=== PATIENT | female | born 1980 | race Caucasian/White ===

== ENCOUNTER 2017-08-13 21:25 | Emergency (ER) | payer BC, OTHER ==
[2017-08-13 21:41] VITALS: BP 142/95
[2017-08-13] MEDS ORDERED: Amoxicillin PO (*) 500 MG CAP PO ONE (22:12)
--- NOTE | 2017-08-13 22:23 | UC ---
Ear Complaint HPI - HPI Summary HPI Summary: 4 DAYS OF URI SX - COUGH, CONGESTION ,ST. WAS ON A PLANE TODAY AND AFTER LANDING HER EARS WOULD NOT POP, HER HEARING WAS MUTED AND SHE IS HAVING TWINGES OF PAIN IN BOTH EARS. NO FEVERS. - History of Current Complaint Chief Complaint: UCRespiratory Stated Complaint: HEARING IMPAIRMENT Time Seen by Provider: 08/13/17 21:59 Hx Obtained From: Patient Hx Last Menstrual Period: one week ago Onset/Duration: Sudden Onset, Lasting Hours Severity Initially: Moderate Severity Currently: Moderate Pain Intensity: 5 Pain Scale Used: 0-10 Numeric Aggravating Factors: Nothing Alleviating Factors: Nothing Associated Signs/Symptoms: Positive: Hearing Loss, URI Symptoms. Negative: Discharge, Foreign Body Sensation, Trauma to Ear - Allergies/Home Medications Allergies/Adverse Reactions: Allergies Allergy/AdvReac Type Severity Reaction Status Date / Time No Known Allergies Allergy Verified 08/13/17 21:41 PMH/Surg Hx/FS Hx/Imm Hx Endocrine History: Diabetes - Surgical History Surgical History: None - Family History Known Family History: Positive: Hypertension, Diabetes - Social History Alcohol Use: Occasionally Substance Use Type: None Smoking Status (MU): Former Smoker Review of Systems Constitutional: Negative ENT: Sore Throat, Ear Ache, Nasal Discharge Respiratory: Cough Cardiovascular: Negative Gastrointestinal: Negative All Other Systems Reviewed And Are Negative: Yes Physical Exam Triage Information Reviewed: Yes Appearance: Well-Appearing, No Pain Distress, Well-Nourished Vital Signs: Initial Vital Signs Temp 97.5 F 08/13/17 21:37 Pulse 90 08/13/17 21:37 Resp 12 08/13/17 21:37 BP 142/95 08/13/17 21:37 Pulse Ox 99 08/13/17 21:37 Vital Signs Reviewed: Yes Eyes: Positive: Conjunctiva Clear ENT: Positive: Hearing grossly normal, Pharynx normal, Other: - BILATERAL TMs DULL, ERYTHEMATOUS AND BULGING Neck: Positive: Supple, Nontender, No Lymphadenopathy Respiratory Exam: Normal Cardiovascular Exam: Normal Abdomen Description: Positive: Soft Musculoskeletal: Positive: No Edema Neurological: Positive: Alert Psychological: Positive: Age Appropriate Behavior Skin: Negative: rashes Ear Complaint Course/Dx - Differential Dx/Diagnosis Provider Diagnoses: BILATERAL AOM Discharge - Discharge Plan Condition: Stable Disposition: HOME Prescriptions: Amoxicillin PO (*) [Amoxicillin 500 MG CAP*] 1,000 mg PO Q12H #26 cap Patient Education Materials: Otitis Media (ED) Referrals: Sheyla Bae MD [Primary Care Provider] - If Needed Additional Instructions: YOUR BLOOD PRESSURE WAS ELEVATED TODAY. THIS MAY BE DUE TO YOUR ACUTE CONDITION. MONITOR AND FOLLOW-UP WITH YOUR PCP WITHIN 4 WEEKS IF IT HAS NOT RETURNED TO NORMAL.
== END 2017-08-13 22:25 | disposition home or self-care (01) ==
LOC: UCEAST 21:25
DX: H66.93 Otitis media, unspecified, bilateral (principal); R05 Cough; J02.9 Acute pharyngitis, unspecified; E11.9 Type 2 diabetes mellitus without complications; Z87.891 Personal history of nicotine dependence
CPT/HCPCS: 99212; A9270-GY; G0463

== ENCOUNTER 2018-01-08 16:11 | Emergency (ER) | payer BC, OTHER ==
--- NOTE | 2018-01-08 17:05 | UC ---
Throat Pain/Nasal Neil HPI - HPI Summary HPI Summary: Pt presents with left ear pain for 3 days. Dry cough and post nasal drip started yesterday. She has been taking dayquill/nyquill with mild relief. Denies fever, chills, SOB, chest pain, abdominal pain, n/v/d/c. - History of Current Complaint Chief Complaint: UCEar Stated Complaint: EAR PAIN,COUGH,CONGESTION Time Seen by Provider: 01/08/18 17:05 Hx Obtained From: Patient Hx Last Menstrual Period: now Onset/Duration: Gradual Onset Severity: Moderate Pain Intensity: 8 Pain Scale Used: 0-10 Numeric Cough: Nonproductive - Allergies/Home Medications Allergies/Adverse Reactions: Allergies Allergy/AdvReac Type Severity Reaction Status Date / Time No Known Allergies Allergy Verified 01/08/18 16:28 PMH/Surg Hx/FS Hx/Imm Hx Endocrine History: Diabetes - Surgical History Surgical History: None - Family History Known Family History: Positive: Hypertension, Diabetes - Social History Occupation: Employed Full-time Lives: With Family Alcohol Use: Occasionally Substance Use Type: None Smoking Status (MU): Former Smoker Review of Systems Constitutional: Negative Skin: Negative Eyes: Negative ENT: Ear Ache, Sinus Congestion Respiratory: Cough Cardiovascular: Negative Gastrointestinal: Negative Musculoskeletal: Negative Neurological: Negative Psychological: Negative All Other Systems Reviewed And Are Negative: Yes Physical Exam Triage Information Reviewed: Yes Appearance: Well-Appearing, No Pain Distress, Well-Nourished Vital Signs: Initial Vital Signs Temp 96.9 F 01/08/18 16:25 Pulse 85 01/08/18 16:25 Resp 18 01/08/18 16:25 BP 126/93 01/08/18 16:25 Pulse Ox 99 01/08/18 16:25 Vital Signs Reviewed: Yes Eyes: Positive: Conjunctiva Clear. Negative: Conjunctiva Inflamed, Discharge ENT: Positive: Hearing grossly normal, Pharynx normal, Nasal congestion, TM bulging - Left ear, TM red - Left ear, Uvula midline. Negative: Pharyngeal erythema, Nasal drainage, Tonsillar swelling, Tonsillar exudate, Hoarse voice, Sinus tenderness Neck: Positive: Supple, Nontender, No Lymphadenopathy Respiratory: Positive: Chest non-tender, Lungs clear, Normal breath sounds, No respiratory distress, No accessory muscle use Cardiovascular: Positive: RRR, No Murmur, Pulses Normal Neurological: Positive: Alert Psychological: Positive: Age Appropriate Behavior Skin: Negative: rashes Throat Pain/Nasal Course/Dx - Course Course Of Treatment: Left ear otitis media - Differential Dx/Diagnosis Provider Diagnoses: Left ear otitis media Discharge - Discharge Plan Condition: Stable Disposition: HOME Prescriptions: Amoxicillin PO (*) [Amoxicillin 500 MG CAP*] 500 mg PO Q12H #20 cap Patient Education Materials: Ear Infection (ED) Referrals: Sheyla Bae MD [Primary Care Provider] - Additional Instructions: If you develop a fever, shortness of breath, chest pain, new or worsening symptoms - please call your PCP or go to the ED.
[2018-01-08 17:19] VITALS: BP 128/88
== END 2018-01-08 17:19 | disposition home or self-care (01) ==
LOC: UCEAST 16:11
DX: H66.92 Otitis media, unspecified, left ear (principal); E11.9 Type 2 diabetes mellitus without complications; Z87.891 Personal history of nicotine dependence
CPT/HCPCS: 99212; G0463

== ENCOUNTER 2023-12-23 08:15 | Inpatient (IN) ==
[2023-12-23] MEDS ORDERED: Lidocaine 1% VIAL 10 MG/ML 30 ML VIAL INJ PRN (09:35)
[2023-12-23] MEDS: miSOPROStol 100 mcg TAB PO ONE ×2 (10:07→14:05)
[2023-12-23 11:02] LABS: Urine Benzodiazepine Screen None Detected (None Detect); Urine Cannabinoids Screen None Detected (None Detect); Urine Opiates Screen None Detected (None Detect)
[2023-12-23] MEDS: Dinoprostone 10 MG VAG.SUPP VAGINAL ONE (18:32)
[2023-12-24] MEDS ORDERED: Sodium Phosphate ADULT ENEMA 133 ML BTL PR PRN (10:23)
[2023-12-24] MEDS ORDERED: witch hazeL 43% TOP.SOLN 200 ML PHA COMPOUND TOPICAL PRN (10:23)
[2023-12-24] MEDS: Witch Hazel PAD JAR TOPICAL SCH (10:49)
[2023-12-24] MEDS: miSOPROStol 100 mcg TAB PO ONE ×2 (10:55→16:11)
[2023-12-24 20:12] LABS: ABS Eosinophils 0.1 10^3/uL (0.0-0.5); ABS Lymphocytes 1.7 10^3/uL (1.0-4.8); ABS Monocytes 0.8 10^3/uL (0.0-0.9); ABS Neutrophils 6.2 10^3/uL (1.5-7.6); Eosinophil % 0.7 %; Hematocrit 35.2 % (35-45); Hemoglobin 12.3 g/dL (11.5-14.3); Lymphocyte % 19.8 %; Mean Corpuscular Hemoglobin 32.1 pg (27-33); Mean Corpuscular Volume 91.9 fL (80-97); Platelet Count 248 10^3/uL (150-450); Red Blood Count 3.83 10^6/uL (3.63-4.92); Red Cell Distribution Width 14.8 % (12-17); White Blood Count 8.8 10^3/uL (3.8-11.8)
[2023-12-24] MEDS: Dinoprostone 10 MG VAG.SUPP VAGINAL ONE (20:22)
[2023-12-24 21:57] LABS: HIV 4th Generation Nonreactive (Nonreactive)
[2023-12-25] MEDS: Buffered Lidocaine 1% SYRIN 1 ml INTRADERM ONE (07:05)
[2023-12-25 10:15] LABS: ABS Eosinophils 0.1 10^3/uL (0.0-0.5); ABS Lymphocytes 1.6 10^3/uL (1.0-4.8); ABS Monocytes 0.7 10^3/uL (0.0-0.9); ABS Neutrophils 6.7 10^3/uL (1.5-7.6); Eosinophil % 0.6 %; Hematocrit 36.5 % (35-45); Hemoglobin 12.9 g/dL (11.5-14.3); Lymphocyte % 18.1 %; Mean Corpuscular Hemoglobin 32.2 pg (27-33); Mean Corpuscular Hgb Conc 35.2 g/dL (31-36); Mean Corpuscular Volume 91.5 fL (80-97); Platelet Count 240 10^3/uL (150-450); Red Blood Count 3.99 10^6/uL (3.63-4.92); Red Cell Distribution Width 14.8 % (12-17); White Blood Count 9.1 10^3/uL (3.8-11.8)
[2023-12-25 10:34] LABS: Urine Creatinine Concentration 54.79 mg/dL (20.00-320.00); Urine TP Creat Ratio 0.1 mg/mg
[2023-12-25 10:36] LABS: Albumin 3.5 g/dL (3.2-5.2); Albumin/Globulin Ratio 1.2 (1-3); Calcium 8.9 mg/dL (8.6-10.3); Creatinine, Serum 0.6 mg/dL (0.51-0.95); Globulin 2.9 g/dL (2-4); Total Bilirubin 0.4 mg/dL (0.2-1.0); Total Protein 6.4 g/dL (6.4-8.9); Uric Acid 3.9 mg/dL (2.3-6.6); eGFR CKD-EPI 113.4 (>60)
[2023-12-25] MEDS: Oxytocin in LR 20,000 MILLI.UNIT/1,000 ML BAG IV SCH ×2 (10:36→22:00)
[2023-12-25] MEDS: Lactated Ringers 1000 ml BAG 1,000 ML IV SCH (10:42)
[2023-12-25] MEDS ORDERED: Morphine PF AMP (0.5MG/ML) 5 MG/10 ML AMP ONE (17:29)
[2023-12-25] MEDS ORDERED: Oxytocin 10 UNITS/ML 1 ML VIAL ONE (17:30)
[2023-12-25] MEDS ORDERED: Bupivacaine 0.5% SDV PF 30ML VIAL ONE (17:30)
[2023-12-25] MEDS ORDERED: Bupivacaine-MPF SPINAL 7.5 MG/ML - 2ML AMP ONE (17:30)
[2023-12-25] MEDS ORDERED: Ondansetron 4 mg VIAL 2 MG/ML 2 ml VIAL ONE (17:30)
[2023-12-25] MEDS: Sodium Citrate/Citric Acid LIQ 15 ML UDC ONE (17:33)
[2023-12-25] MEDS: ceFOXitin 3 GM in NS 0.9% 100 ml BAG 100 ML IVPB ONE (17:33)
[2023-12-25] MEDS ORDERED: Acetaminophen IV 1 GM/100ML 1,000 MG/100 ML BAG IV ONE (18:10)
[2023-12-25] MEDS ORDERED: fentaNYL 100 mcg/2 ml 50 MCG/ML VIAL ONE (18:28)
[2023-12-25] MEDS ORDERED: Dexamethasone IV 4 MG/ML VIAL 1 ml VIAL ONE (18:38)
[2023-12-25 19:02] LABS: Urine Appearance Cloudy; Urine Bilirubin Negative (Negative); Urine Blood Negative (Negative); Urine Color Yellow; Urine Glucose Negative (Negative); Urine Ketones 1+ (Negative); Urine Nitrite Negative (Negative); Urine Protein 1+(30 mg/dL) (Negative); Urine Specific Gravity 1.026 (1.002-1.030); Urine Urobilinogen Negative (Negative)
[2023-12-25 19:21] LABS: Urine Bacteria Absent (Absent); Urine Red Blood Cell 2+(6-10/hpf) (Absent); Urine Squamous Epithelial Cell Present (Absent); Urine White Blood Cell Trace(0-5/hpf) (Absent)
[2023-12-25] MEDS ORDERED: Glycerin ADULT 2.4 gm SUPP PR PRN (19:21)
[2023-12-25] MEDS ORDERED: Witch Hazel PAD JAR TOPICAL PRN (19:21)
[2023-12-25] MEDS: Carboprost Tromethamine 250 mcg 1 ml VIAL ONE (19:23)
[2023-12-25] MEDS ORDERED: Naloxone 0.4 mg VIAL 0.4 mg/ml 1 ml VIAL IV PUSH PRN (19:28)
[2023-12-25] MEDS ORDERED: fentaNYL 100 mcg/2 ml 50 MCG/ML VIAL IV PRN (19:28)
[2023-12-25] MEDS ORDERED: Naloxone 0.4 mg VIAL 0.4 mg/ml 1 ml VIAL IV PRN (19:28)
[2023-12-25] MEDS ORDERED: Lactated Ringers 1000 ml BAG 1,000 ML IV SCH (20:00)
[2023-12-25] MEDS: Ondansetron 4 mg VIAL 2 MG/ML 2 ml VIAL IV PRN (21:03)
[2023-12-26] MEDS: Acetaminophen IV 1 GM/100ML 1,000 MG/100 ML BAG IV PRN (05:43)
[2023-12-26 06:37] LABS: ABS Lymphocytes 1.5 10^3/uL (1.0-4.8); ABS Neutrophils 11.3 10^3/uL (1.5-7.6); ABS Nucleated RBC 0.01 10^3/ul; Hematocrit 30.2 % (35-45); Hemoglobin 10.6 g/dL (11.5-14.3); Mean Corpuscular Hemoglobin 32.2 pg (27-33); Mean Corpuscular Hgb Conc 35.3 g/dL (31-36); Mean Corpuscular Volume 91.2 fL (80-97); Mean Platelet Volume 7.1 fL (7.5-11.2); Platelet Count 233 10^3/uL (150-450); Red Blood Count 3.31 10^6/uL (3.63-4.92); Red Cell Distribution Width 14.6 % (12-17); White Blood Count 13.8 10^3/uL (3.8-11.8)
[2023-12-26] MEDS: Metoclopramide 5 MG/ML VIAL (10 mg) IV PRN (09:29)
[2023-12-26] MEDS: Ondansetron 4 mg VIAL 2 MG/ML 2 ml VIAL IV PRN (09:33)
[2023-12-27] MEDS: Lactated Ringers 1000 ml BAG 1,000 ML IV ONE (04:14)
[2023-12-28 08:18] VITALS: BP 120/66
[2023-12-28] MEDS: Dibucaine 1% OINT 28.35 GM TUBE PR PRN (08:23)
== END 2023-12-28 11:30 | disposition home or self-care (01) | DRG 540 ==
LOC: MCHOBOUT 08:15 → MCHOB 09:24
PROVIDERS: ADMIT Obstetrics & Gynecology; ATTEND Obstetrics & Gynecology